=== PATIENT | male | born 1970 | race Caucasian/White ===

== ENCOUNTER 2016-06-15 19:50 | Emergency (ER) | payer BC ==
[~2016-06-15] VITALS: Ht 177.8 cm; Wt 89.8 kg
[2016-06-15 19:54] VITALS: BP 160/97; PULSE 95; RESP 18; TEMP 99; O2SAT 97
[2016-06-15] MEDS ORDERED: LIDOCAINE HCL 1% 50 ML VIAL INFIL ONE (20:30)
[2016-06-15] MEDS ORDERED: TETANUS/DIPHTHERIA TOXOID ADULT 0.5 ML VIAL IM ONE (20:30)
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
[2016-06-15] MEDS ORDERED: IBUP800T23 PO (21:07)
== END 2016-06-15 21:32 | disposition home or self-care (01) ==
LOC: PHEFT 19:50
DX: S61.411A Laceration without foreign body of right hand, initial encounter (principal); Z23 Encounter for immunization; W45.8XXA Other foreign body or object entering through skin, initial encounter
CPT/HCPCS: 12001; 90471; 90714